=== PATIENT | female | born 1955 | race Caucasian/White ===

== ENCOUNTER → 2017-02-22 | Outpatient (CLI) | payer OTHER ==
[~2017-02-22] MED LIST: AMARYL2 MG PO; ASPIR 8181 MG PO; DIABETA,MICRON2.5 MG PO; LANTUS 10100 UNITS/ SC; METFORMIN HCL500 MG PO; METFORMIN HYDR500 GM MC; PEPCID20 MG PO; SIMVASTATIN20 M1 PO; ZANTAC150 M1 PO; ZESTORETIC,P1 TABLE1 PO; ZESTRIL,PRINIV2.5 MG PO; ZOCOR5 MG PO
== END | disposition home or self-care (01) ==
LOC: RES 02-10 08:00
DX: Z02.71 Encounter for disability determination (principal)
CPT/HCPCS: 94060; 94729; 94760